=== PATIENT | female | born 1940 | race Caucasian/White ===

== ENCOUNTER 2017-09-19 10:30 | Outpatient (RCR) | payer OTHER | END 2017-09-20 | disposition home or self-care (01) | LOC: PTY 10:30 | DX: M25.512 Pain in left shoulder (principal) ==

== ENCOUNTER 2017-09-26 11:00 | Outpatient (RCR) | payer OTHER | END 2017-10-20 | disposition home or self-care (01) | LOC: PTY 11:00 | DX: M25.512 Pain in left shoulder (principal) ==

== ENCOUNTER 2017-10-31 10:58 | Outpatient (RCR) | payer OTHER | END 2017-11-20 | disposition home or self-care (01) | LOC: PTY 10:58 | DX: M25.512 Pain in left shoulder (principal) ==

== ENCOUNTER 2017-11-30 12:55 | Outpatient (RCR) | payer OTHER | END 2017-12-21 | disposition home or self-care (01) | LOC: PTY 12:55 | DX: M25.512 Pain in left shoulder (principal) ==

== ENCOUNTER 2018-01-14 10:59 | Outpatient (RCR) | payer OTHER | END 2018-01-20 | disposition home or self-care (01) | LOC: PTY 10:59 | DX: M25.512 Pain in left shoulder (principal); M25.811 Other specified joint disorders, right shoulder ==